=== PATIENT | female | born 1945 | race Caucasian/White ===

== ENCOUNTER 2020-10-06 12:23 | Observation (INO) | payer MEDICARE ==
[2020-10-06 13:02] LABS: #Basophils 0.1 thou/uL (0.0-0.2); #Eosinphils 0.1 thou/uL (0.0-0.7); #Lymphocytes 2.1 thou/uL (1.20-3.40); #Monocytes 0.7 thou/uL (0.11-0.59); #Neutrophils 6.6 thou/uL (1.40-6.50); %Basophils 0.8 % (0.0-1.0); %Eosinophils 0.8 % (0.0-10.0); %Lymphocytes 21.6 % (21.0-51.0); %Monocytes 7.4 % (0.0-10.0); %Neutrophils 69.4 % (42.0-75.0); Mean Corpuscular HGB CONC 33.8 g/dL (32.0-36.0); Mean Corpuscular Hemoglobin 32.6 pg (27.0-31.0); Mean Corpuscular Volume 96.7 fL (78.0-98.0); Mean Platelet Volume 7.8 fL (7.4-10.4); Platelet Count 223 thou/uL (130-400); Red Blood Cell (RBC) Count 5.52 mill/uL (4.20-5.40); White Blood Cell (WBC) Count 9.5 thou/uL (4.8-10.8)
[2020-10-06 13:20] LABS: ALT (SGPT) 37 U/L (8-55); AST (SGOT) 35 U/L (5-34); Albumin 3.8 g/dL (3.4-4.8); Alkaline Phosphatase 84 U/L (40-110); Anion Gap 14 mmol/L (10-20); BUN (Urea Nitrogen) 8 mg/dL (9.8-20.1); Bilirubin, Total 0.7 mg/dL (0.2-1.2); CK (CPK) 72 U/L (29-168); Calc. Creatinine Clearance 0 mL/min (70-130); Calcium 8.8 mg/dL (7.8-10.44); Carbon Dioxide 27 mmol/L (23-31); Chloride 105 mmol/L (98-107); Globulin 2.9 g/dL (2.4-3.5); Glucose 87 mg/dL (83-110); Lipase 38 U/L (8-78); Potassium 3.8 mmol/L (3.5-5.1); Protein, Total 6.7 g/dL (5.8-8.1); Sodium 142 mmol/L (136-145)
[2020-10-06] MEDS ORDERED: Aspirin Chewable 81 MG TAB ONE ×2 (14:26→14:27)
--- NOTE | 2020-10-06 14:27 | RAD ---
SINGLE VIEW CHEST: Date: 10/06/2020 COMPARISON: 08/29/2014. HISTORY: Shortness of breath and weakness. FINDINGS: Single view of the chest shows normal sized cardiomediastinal silhouette with atherosclerotic calcifi cations in the aorta. There is no evidence of consolidation, mass, or pleural effusion. Degenerative changes are seen in the spine. IMPRESSION: No evidence of acute cardiopulmonary disease. POS: GARIMAA
[2020-10-06] MEDS ORDERED: Senokot S 8.6-50 MG TAB PO PRN (15:27)
[2020-10-06] MEDS ORDERED: Ondansetron ODT 4 MG TAB PO PRN (15:27)
--- NOTE | 2020-10-06 16:40 | HP ---
PRIMARY CARE PHYSICIAN: [facility]. PREVIOUS PRIMARY RESEARCH ASSOCIATE QUALITY CONTROL QC: Dr. Marin. REASON FOR ADMISSION: Chest pressure as well as shortness of breath at rest. HISTORY OF PRESENT ILLNESS: This is a very pleasant 75-year-old female, who presents to the emergency room today, brought in by the patient's daughter because of concerns of significant lethargy, shortness of breath at rest, associated with chest pressure on and off. According to the patient as well as her daughter, her symptoms have been going on and off for around 4 months. The patient also received her first Pfizer COVID-19 vaccination 16 days ago and is currently scheduled for her second dosing. Initial evaluation in the emergency room by the emergency room physician did not show any evidence of in regard to her troponins as well as EKGs. The patient's hemodynamics were well optimized without any arrhythmia or other significant issues with blood pressure. According to the patient, she has been in good state of health, only takes baby aspirin on and off, sometimes 3 to 4 tablets a day. The patient also smokes a pack of cigarettes every day for over 50 years and does not have any intention to quit though. The patient's daughter has been concerned with above symptoms and brought her to the emergency room for further review as her mother has been adamant in following up with her primary care physician. No other current complaints of abdominal pain, fever, rigors, chills, nausea, vomiting, diaphoresis, blurring of vision, tingling, numbness, burning micturition, constipation, claudication, anxiety, depression, hematuria, hematochezia, cough, expectoration, syncope, seizures, PND, or orthopnea has been noted at this point of time. PAST MEDICAL HISTORY: None. SOCIAL HISTORY: The patient smokes a pack of cigarettes a day for over 55 years. Does not abuse alcohol or recreational drugs. PAST SURGICAL HISTORY: Includes 2 sections and 1 hysterectomy. ALLERGIES: NO KNOWN DRUG ALLERGIES. FAMILY HISTORY: Father had benign essential hypertension without any history of colon cancers in the family. MEDICATIONS: At home, 81 mg of baby aspirin daily. ADVANCED DIRECTIVES: Full code. REVIEW OF SYSTEMS: Except as documented, all systems reviewed and negative. PHYSICAL EXAMINATION: GENERAL: This is a 75-year-old female, lying in her hospital bed, not in acute distress, not on oxygen. VITAL SIGNS: Has a blood pressure of 140/65 mmHg and a heart rate of 75 per minute, normal sinus rhythm. Saturation 100% on room air. Has an airway, which is clear. HEENT: Atraumatic, normocephalic. NECK: Supple. No bruit. No lymphadenopathy. No thyromegaly. CVS: S1, S2. Normal sinus rhythm. No murmurs. CHEST: Bilateral air entry present. No rhonchi. No wheeze. ABDOMEN: Soft, nontender. Bowel sounds are present. No organomegaly. EXTREMITIES: No cyanosis. No edema. No pallor. No icterus. NEUROLOGIC: The patient is alert, oriented x3. No focal motor or sensory deficits noted. HEME: No ecchymosis or petechiae. PSYCH: No depression or anxiety. SKIN: Intact, but dry. DIAGNOSTICS: WBC is 9.5, hemoglobin 18.0, hematocrit 53.3, platelets are 223. Sodium 142, potassium 3.8, chloride 105, carbon dioxide 27, BUN is 8, creatinine 0.73. AST 35, ALT 37. Troponin 0.019. BNP is 124.7. Lipase is 38. Chest x-ray has been reviewed. No cardiopulmonary abnormalities noted. Currently, we have authorized for Lexiscan stress test evaluation as well as echocardiogram review. We will follow official diagnostic evaluations. ASSESSMENT: 1. Chest pain to rule out acute coronary syndrome. Basing on the patient's symptomatology with chest pressure associated with shortness of breath, we will go ahead and order a pharmacological stress test evaluation along with ordering an echocardiogram to rule out congestive heart failure. Although, chest x-ray does not show any evidence of cardiomyopathy, the patient's symptomatology, and her current BNP though mildly elevated might contribute to her symptomatology. We will closely monitor and follow official diagnostics. Also, we will do TSH evaluation along with ordering hemoglobin A1c and lipid panel. 2. Tobacco abuse. Extensive education in regard to quitting smoking has been noted to the patient including providing her with interventions like nicotine patch. More than 10 minutes of this education was done. 3. 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 PLAN: Discussed in detail of the diagnosis, treatment, and followup with the patient. I have advised the patient about Cardiolite stress test evaluation along with echocardiogram review. All questions and concerns were addressed. I expect the patient to be admitted to the hospitalist service 2 midnights. The patient's MPOA at this point of time is her daughter, present at bedside. We will start the patient on aspirin 81 mg daily. Await full diagnostic evaluations. Discharge planning will depend on further hospital course. Job ID: [id number]
[2020-10-06 17:11] LABS: Hemoglobin A1c 5.6 % (4.0-6.0)
[2020-10-06 17:59] VITALS: BMI 20.1
[2020-10-06] MEDS: Sodium Chloride 0.9% 1,000 ML IV SCH (18:41)
[2020-10-06 19:58] LABS: Troponin I 0.027 ng/mL (< 0.028)
[2020-10-06] MEDS ORDERED: diphenhydrAMINE 25 MG CAP PO SCH (20:30)
[2020-10-06] MEDS: Famotidine 20 MG TAB PO SCH (20:48)
[2020-10-07 01:43] LABS: SARS-CoV-2 PCR by NAA Not Detected (NotDetected)
[2020-10-07] MEDS: Sodium Chloride 0.9% 1,000 ML IV SCH (06:05)
[2020-10-07] MEDS: Enoxaparin Sodium 40 MG/0.4 ML SYRINGE SC SCH (12:05)
[2020-10-07] MEDS: Famotidine 20 MG TAB PO SCH ×2 (12:05→20:42)
[2020-10-07] MEDS: Aspirin Chewable 81 MG TAB PO SCH (12:05)
--- NOTE | 2020-10-07 12:20 | NM ---
NUCLEAR MEDICINE CARDIAC STRESS WITH EF AND WALL MOTION: HISTORY: Dyspnea. Chest pain. TECHNIQUE: The patient was administered 9 mCi of technetium 99m sestamibi for rest imaging and 27.20 mCi of tech netium 99m sestamibi for stress imaging. Cardiac gating was performed. FINDINGS: Homogeneous distribution of the radiotracer in the left ventricle on the attenuated corrected stress images. No reversibility or fixed defect. TID: 1.11. End-diastolic volume: 83 mL. End-systolic volume: 36 mL. Cardiac gating: Normal wall motion and thickening. Ejection fraction: 56%. IMPRESSION: 1. No reversibility or fixed defect. 2. Ejection fraction 56%. Transcribed Date/Time: 10/07/2020 12:27 PM
--- NOTE | 2020-10-07 13:37 | PDOC.HOSPP ---
- Subjective Encounter Date: 10/07/20 Subjective: Patient seen by me after undergoing a nuclear stress test. She is slightly short of breath. - Objective Vital Signs & Weight: Vital Signs (12 hours) Temp Pulse Resp BP Pulse Ox 10/07/20 12:00 64 18 138/64 94 L 10/07/20 08:05 97.9 F 75 16 123/59 L 92 L 10/07/20 03:20 98 F 89 20 136/63 97 Weight Weight 121 lb 1.6 oz I&O: 10/06/20 10/07/20 10/08/20 06:59 06:59 06:59 Intake Total 1260 Output Total 500 Balance 760 Result Diagrams: 10/06/20 12:47 10/06/20 12:47 Hospitalist ROS - Medication Medications: Active Medications Generic Name Dose Route Start Last Admin Trade Name Freq PRN Reason Stop Dose Admin Aspirin 81 mg 10/07/20 09:00 10/07/20 12:05 Aspirin Chewable 81 Mg Tab PO 81 mg DAILY LALY Administration Enoxaparin Sodium 40 mg 10/07/20 09:00 10/07/20 12:05 Enoxaparin Sodium 40 Mg/0.4 Ml Syringe SC 40 mg 0900 LALY Administration Famotidine 20 mg 10/06/20 21:00 10/07/20 12:05 Famotidine 20 Mg Tab PO 20 mg BID LALY Administration Sodium Chloride 1,000 mls @ 75 mls/hr 10/06/20 15:30 10/07/20 06:05 Normal Saline 0.9% IV 1,000 mls .[id number] LALY Administration Hospitalist Exam Vitals: Vital Signs (12 hours) Temp Pulse Resp BP Pulse Ox 10/07/20 12:00 64 18 138/64 94 L 10/07/20 08:05 97.9 F 75 16 123/59 L 92 L 10/07/20 03:20 98 F 89 20 136/63 97 Weight Weight 121 lb 1.6 oz General - other findings: Appears deconditioned Eye: anicteric sclera ENT: normocephalic atraumatic Neck: supple Heart: no murmur, irregular Respiratory: CTAB, no wheezes, no rales, no ronchi Gastrointestinal: soft, non-tender, non-distended Extremities: no cyanosis, no edema Psychiatric: normal affect, normal behavior Hosp A/P (1) Hypertension Code(s): I10 - ESSENTIAL (PRIMARY) HYPERTENSION Status: Acute (2) Heavy smoker Code(s): F17.200 - NICOTINE DEPENDENCE, UNSPECIFIED, UNCOMPLICATED Status: Acute (3) TIA (transient ischemic attack) Code(s): G45.9 - TRANSIENT CEREBRAL ISCHEMIC ATTACK, UNSPECIFIED Status: Acute (4) Shortness of breath at rest Code(s): R06.02 - SHORTNESS OF BREATH Status: Acute (5) Generalized weakness Code(s): R53.1 - WEAKNESS Status: Acute - Plan Assessment Patient is a 75-year-old female with a past medical history of heavy tobacco smoking approximately 2 pack/day, hypertension and TIA in the past. She presented to the ER after being urged by daughter who was concerned about patient's decline in functional status. Been having dyspnea at rest, chest pain also inability to complete her ADLs due to generalized weakness. ACS has been ruled out with negative cardiac enzymes. She underwent a nuclear stress test which was unremarkable. A 2-D echo from a 2011 showed she had moderate aortic regurgitation at the time. Dyspnea at rest Chest pain Generalized weakness Heavy tobacco usage Hypertension History of TIA PLAN: Follow up 2-D echo Continue daily low dose aspirin I will add atorvastatin given risk for PVD, and prior hx of TIA Low dose coreg for hypertension PT/OT ordered to optimize functional status Continue telemetry monitoring D/C continuous IVF infusion Patient will be placed on fall precautions pending PT/OT clearance
[2020-10-07] MEDS ORDERED: Regadenoson 0.4 MG/5 ML SYRINGE ONE (17:37)
[2020-10-07] MEDS: Carvedilol 6.25 MG TAB PO SCH (17:42)
[2020-10-07] MEDS: Atorvastatin Calcium 40 MG TAB PO SCH (20:42)
[2020-10-07] MEDS: Acetaminophen 325 MG TAB PO PRN (22:58)
[2020-10-08] MEDS ORDERED: Ondansetron ODT 4 MG TAB ONE (02:36)
[2020-10-08] MEDS ORDERED: Carvedilol 6.25 MG TAB ONE (07:22)
[2020-10-08] MEDS ORDERED: Aspirin Chewable 81 MG TAB ONE (07:22)
[2020-10-08] MEDS ORDERED: Famotidine 20 MG TAB ONE ×2 (07:22→07:24)
[2020-10-08] MEDS ORDERED: Famotidine/PF 20 mg/2ml Vial ONE (07:23)
[2020-10-08] MEDS ORDERED: Enoxaparin Sodium 40 MG/0.4 ML SYRINGE ONE (07:23)
[2020-10-08] MEDS: Famotidine 20 MG TAB PO SCH ×2 (08:08→22:03)
[2020-10-08] MEDS: Aspirin Chewable 81 MG TAB PO SCH (08:08)
[2020-10-08] MEDS: Carvedilol 6.25 MG TAB PO SCH ×2 (08:08→17:28)
--- NOTE | 2020-10-08 12:06 | PDOC.HOSPP ---
- Subjective Encounter Date: 10/08/20 Subjective: No acute events overnight. Patient energy level has improved. She is a mbulating without getting severely winded. - Objective Vital Signs & Weight: Weight Weight 121 lb 1.6 oz I&O: 10/07/20 10/08/20 10/09/20 06:59 06:59 06:59 Intake Total 1260 1020 Output Total 500 Balance 760 1020 Result Diagrams: 10/06/20 12:47 10/06/20 12:47 Hospitalist ROS - Medication Medications: Active Medications Generic Name Dose Route Start Last Admin Trade Name Freq PRN Reason Stop Dose Admin Acetaminophen 650 mg 10/06/20 15:27 10/07/20 22:58 Acetaminophen 325 Mg Tab PO 650 mg Q4H PRN Administration Headache/Fever/Mild Pain (1-3) Aspirin 81 mg 10/07/20 09:00 10/07/20 12:05 Aspirin Chewable 81 Mg Tab PO 81 mg DAILY LALY Administration Atorvastatin Calcium 40 mg 10/07/20 21:00 10/07/20 20:42 Atorvastatin Calcium 40 Mg Tab PO 40 mg HS LALY Administration Carvedilol 6.25 mg 10/07/20 17:00 10/07/20 17:42 Carvedilol 6.25 Mg Tab PO 6.25 mg BID-WM LALY Administration Enoxaparin Sodium 40 mg 10/07/20 09:00 10/07/20 12:05 Enoxaparin Sodium 40 Mg/0.4 Ml Syringe SC 40 mg 0900 LALY Administration Famotidine 20 mg 10/06/20 21:00 10/07/20 20:42 Famotidine 20 Mg Tab PO 20 mg BID LALY Administration Hospitalist Exam Vitals: Weight Weight 121 lb 1.6 oz General - other findings: Slightly deconditioned Eye: anicteric sclera ENT: normocephalic atraumatic Heart: RRR, no murmur, no gallops, no rubs Respiratory: CTAB, no wheezes, no rales, no ronchi Gastrointestinal: soft, non-tender, non-distended Extremities: no edema Neurological: cranial nerve grossly intact Musculoskeletal: generalized weakness Psychiatric: normal affect, normal behavior Hosp A/P (1) Hypertension Code(s): I10 - ESSENTIAL (PRIMARY) HYPERTENSION Status: Acute (2) Heavy smoker Code(s): F17.200 - NICOTINE DEPENDENCE, UNSPECIFIED, UNCOMPLICATED Status: Acute (3) TIA (transient ischemic attack) Code(s): G45.9 - TRANSIENT CEREBRAL ISCHEMIC ATTACK, UNSPECIFIED Status: Acute (4) Shortness of breath at rest Code(s): R06.02 - SHORTNESS OF BREATH Status: Acute (5) Generalized weakness Code(s): R53.1 - WEAKNESS Status: Acute - Plan Assessment Patient is a 75-year-old female with a past medical history of heavy tobacco smoking approximately 2 pack/day, hypertension and TIA in the past. She presented to the ER after being urged by daughter who was concerned about patient's decline in functional status. She has been having dyspnea at rest, chest pain and inability to complete her ADLs due to generalized weakness. ACS has been ruled out with negative cardiac enzymes. She underwent a nuclear stress test which was unremarkable. 2D echo during this admission captured moderate aortic regurgitation which was also present back in the study done in 2011. She has a normal EF at 50 to 55% and no wall motion abnormality. No pulmonary hypertension reported. At this time patient is undergoing physical therapy to optimize her functional status. Due to ongoing weather conditions, it is unlikely that she can be discharged today. Dyspnea at rest Chest pain Generalized weakness Heavy tobacco usage Hypertension History of TIA PLAN: Continue PT/OT while in-house Continue daily low dose aspirin, atorvastatin and low-dose Coreg Continue telemetry monitoring Patient can be discharged tomorrow if weather conditions permit, and cleared by physical therapy.
[2020-10-08] MEDS: Enoxaparin Sodium 40 MG/0.4 ML SYRINGE SC SCH (14:27)
[2020-10-08] MEDS: Atorvastatin Calcium 40 MG TAB PO SCH (22:03)
[2020-10-09] MEDS: Acetaminophen 325 MG TAB PO PRN (03:02)
[2020-10-09] MEDS ORDERED: Carvedilol 6.25 MG TAB PO SCH (08:00)
[2020-10-09] MEDS: Aspirin Chewable 81 MG TAB PO SCH (08:45)
[2020-10-09] MEDS: Famotidine 20 MG TAB PO SCH (08:45)
[2020-10-09] MEDS: Enoxaparin Sodium 40 MG/0.4 ML SYRINGE SC SCH ×2 (08:46→08:50)
[2020-10-09] MEDS: Carvedilol 6.25 MG TAB PO SCH (08:51)
--- NOTE | 2020-10-09 11:04 | PDOC.DS.DS ---
Provider Date of Admission: 10/06/20 15:02 Date of Discharge: 10/09/20 Admitting Provider: Eleuterio William MD Primary Care Physician: Unknown Course Hospital Course: Is a 75-year-old female with a past medical history of heavy tobacco smoking and possibly hypertension who presented to the hospital complaining of chest pain and generalized weakness. ACS was ruled out. She had a normal nuclear stress test. The rest of her hospital course was focused on optimizing her functional status. She worked with physical therapy who recommended home health with PT and nursing. She is medically cleared. He was not taking medication at home. I will discharge her on aspirin, atorvastatin and Coreg and her risk factors for coronary artery disease in the future. Her echocardiogram showed a preserved EF and moderate aortic regurg which has been present for several years. Resuscitation Status: 10/06/20 15:27 Resuscitation Status Routine Resuscitation Status: FULL: Full Resuscitation Lab Results: 10/06/20 12:47 10/06/20 12:47 Vitals: Vital Signs (12 hours) Temp Pulse Resp BP Pulse Ox 10/09/20 07:45 97.4 F L 63 18 164/70 H 96 10/09/20 04:00 97.7 F 70 18 159/54 H Weight Admit Weight 121 lb 1.6 oz Weight 121 lb 1.6 oz Physical Exam: The patient was seen and examined on the day of discharge. General Appearance: NAD, awake alert Eye: anicteric sclera ENT: normocephalic atraumatic Respiratory: CTAB, no wheezes, no rales, no ronchi Cardiovascular: RRR, no murmur, no gallops, no rubs Gastrointestinal: soft, non-tender, non-distended Extremities: no edema Neurological: cranial nerve grossly intact PSYCH: normal affect, normal behavior Problem Assessment: Please refer to hospital course (1) Hypertension Code(s): I10 - ESSENTIAL (PRIMARY) HYPERTENSION Status: Acute (2) Heavy smoker Code(s): F17.200 - NICOTINE DEPENDENCE, UNSPECIFIED, UNCOMPLICATED Status: Acute (3) TIA (transient ischemic attack) Code(s): G45.9 - TRANSIENT CEREBRAL ISCHEMIC ATTACK, UNSPECIFIED Status: Acute (4) Shortness of breath at rest Code(s): R06.02 - SHORTNESS OF BREATH Status: Acute (5) Generalized weakness Code(s): R53.1 - WEAKNESS Status: Acute Plan Prescriptions: Aspirin Chewable [Aspirin Chewable Tablet] 81 mg PO DAILY #30 tab Carvedilol [Coreg] 12.5 mg PO BID-WM #60 tab Atorvastatin Calcium [Lipitor] 40 mg PO HS #30 tab Home Medications: Medication Instructions Recorded Confirmed Type Aspirin Chewable [Aspirin Chewable 81 mg PO DAILY #30 tab 10/09/20 Rx Tablet] Atorvastatin Calcium [Lipitor] 40 mg PO HS #30 tab 10/09/20 Rx Carvedilol [Coreg] 12.5 mg PO BID-WM #60 tab 10/09/20 Rx Allergies: azithromycin Allergy (Verified 10/06/20 17:57) erythromycin base Allergy (Verified 10/06/20 17:57) Sulfa (Sulfonamide Antibiotics) Allergy (Verified 10/06/20 17:57) Referrals: Unknown,Unknown [Primary Care Provider] - Disposition: HOME HEALTH Quality CORE MEASURES:: N/A
[2020-10-09 12:54] VITALS: BP 130/60; TEMP 97.7
== END 2020-10-09 13:05 | disposition home health service (06) ==
LOC: ERS 12:23 → 2NO 15:02
PROVIDERS: ADMIT Student in an Organized Health Care Education/Training Program; ATTEND Internal Medicine
DX: R07.89 Other chest pain (principal); R06.02 Shortness of breath; R53.1 Weakness; F17.210 Nicotine dependence, cigarettes, uncomplicated; D75.1 Secondary polycythemia; Z86.73 Personal history of transient ischemic attack (TIA), and cerebral infarction without residual deficits; Z88.1 Allergy status to other antibiotic agents; Z88.2 Allergy status to sulfonamides; Z20.822 Contact with and (suspected) exposure to COVID-19
CPT/HCPCS: 71045; 78452; 80061; 82550; 83036; 83690; 83880; 84484 ×2; 93005; 93017; 93306; 94760 ×2; 97116; 97139 ×3; 99285; A9500; U0003; U0005; 36415; 80053; 84443; 85025; 87635; 96372; G0378; J1650; J2785; Q0163

== ENCOUNTER 2021-02-21 09:26 | Outpatient (CLI) | payer MEDICARE | END 2021-02-21 09:27 | disposition home or self-care (01) | LOC: BICRAD 09:26 | PROVIDERS: ATTEND Internal Medicine Critical Care Medicine | DX: R06.00 Dyspnea, unspecified (principal) | CPT/HCPCS: 71046 ==

== ENCOUNTER 2022-02-05 12:41 | Outpatient (CLI) | payer MEDICARE | END 2022-02-05 12:42 | disposition home or self-care (01) | LOC: BICRAD 12:41 | PROVIDERS: ATTEND Internal Medicine Cardiovascular Disease | DX: R06.00 Dyspnea, unspecified (principal); R41.0 Disorientation, unspecified; R60.0 Localized edema | CPT/HCPCS: 36415; 71046; 80053; 81001 ==

== ENCOUNTER 2022-12-10 16:43 | Outpatient (CLI) | payer MEDICARE | END 2022-12-10 16:44 | disposition home or self-care (01) | LOC: RAD-FRANK 16:43 | PROVIDERS: ATTEND Nurse Practitioner Family | DX: R06.02 Shortness of breath (principal); J98.4 Other disorders of lung | CPT/HCPCS: 71046 ==